=== PATIENT | male | born 1975 | race Caucasian/White ===

== ENCOUNTER 2024-12-28 11:34 | Emergency (ER) | payer BC ==
[~2024-12-28] VITALS: Ht 175.3 cm; Wt 70.3 kg
[2024-12-28 11:42] VITALS: BP 114/71; TEMP 98.2
[2024-12-28] MEDS ORDERED: IBUP-1955 PO (13:22)
[2024-12-28] MEDS ORDERED: AMOX-430 PO (13:22)
[2024-12-28] MEDS ORDERED: BACI/NEOM/POLY B OINT PKT 1 UDPKT PACKET ONE (13:28)
[2024-12-28] MEDS: BACI/NEOM/POLY B OINT PKT 1 UDPKT PACKET TP ONE (13:31)
[2024-12-28 13:32] VITALS: O2SAT 97
== END 2024-12-28 13:32 | disposition home or self-care (01) ==
LOC: ER 11:50
DX: S61.252A Open bite of right middle finger without damage to nail, initial encounter (principal); J45.909 Unspecified asthma, uncomplicated; M41.9 Scoliosis, unspecified; Z88.1 Allergy status to other antibiotic agents; Z98.890 Other specified postprocedural states; W54.0XXA Bitten by dog, initial encounter; Y93.89 Activity, other specified; Y92.89 Other specified places as the place of occurrence of the external cause; Y99.8 Other external cause status
CPT/HCPCS: 73130-TC

== ENCOUNTER 2024-12-30 10:21 | Emergency (ER) | payer BC ==
[~2024-12-30] VITALS: Ht 175.3 cm; Wt 70.8 kg
[~2024-12-30 10:21] MED LIST: AMOX-430 PO; IBUP-1955 PO
[2024-12-30 10:26] VITALS: BP 118/74; TEMP 98.4
[2024-12-30] MEDS ORDERED: AMOX/CLAVULANATE 875 MG TABLET ONE (10:32)
[2024-12-30] MEDS: AMOX/CLAVULANATE 875 MG TABLET PO ONE (10:35)
[2024-12-30 10:39] VITALS: O2SAT 99
== END 2024-12-30 10:40 | disposition home or self-care (01) ==
LOC: ER 10:24
DX: M27.3 Alveolitis of jaws (principal); J45.909 Unspecified asthma, uncomplicated; M41.9 Scoliosis, unspecified; Z88.1 Allergy status to other antibiotic agents; Z98.890 Other specified postprocedural states